=== PATIENT | female | born 1985 | race Caucasian/White ===

== ENCOUNTER 2018-03-03 11:15 | Emergency (ER) | payer OTHER ==
[~2018-03-03] VITALS: Ht 152.4 cm; Wt 54.9 kg
== END 2018-03-03 13:30 | disposition home or self-care (01) ==
LOC: ER 11:15
DX: M54.89 Other dorsalgia (principal)

== ENCOUNTER 2022-12-17 15:00 | Inpatient (IN) | payer OTHER ==
[~2022-12-17] VITALS: Ht 152.4 cm; Wt 87.5 kg
[2022-12-23] MEDS ORDERED: CITALOPRAM20 MG/10 M PO (10:20)
[2022-12-23] MEDS ORDERED: PRENATABS RX T1 EACH PO (10:20)
== END 2022-12-25 15:06 | disposition home or self-care (01) | DRG 807 ==
LOC: LDR 12-23 08:31 → OB/GYN 12-23 17:25 → LDR 12-30 15:00
PROVIDERS: ADMIT Obstetrics & Gynecology Maternal & Fetal Medicine; ATTEND Obstetrics & Gynecology Maternal & Fetal Medicine
PROC: 10E0XZZ Delivery of Products of Conception, External Approach (ICD-10-PCS; principal; 2022-12-23)
PROC: 0HQ9XZZ Repair Perineum Skin, External Approach (ICD-10-PCS; 2022-12-23)
PROC: 4A1HXCZ Monitoring of Products of Conception, Cardiac Rate, External Approach (ICD-10-PCS; 2022-12-23)
DX: O70.0 First degree perineal laceration during delivery (principal); Z37.0 Single live birth; Z3A.39 39 weeks gestation of pregnancy; Z20.822 Contact with and (suspected) exposure to COVID-19

== ENCOUNTER 2022-12-22 12:32 | Outpatient (CLI) | payer OTHER | END 2022-12-22 13:20 | disposition home or self-care (01) | LOC: NST 12:32 | PROVIDERS: ATTEND Obstetrics & Gynecology Gynecology | DX: Z34.83 Encounter for supervision of other normal pregnancy, third trimester (principal) ==